=== PATIENT | female | born 1980 | race Caucasian/White ===

== ENCOUNTER 2018-05-27 14:08 | Outpatient (CLI) ==
[2016-07-08 15:22] VITALS: BMI 25.0
[2018-05-27 14:23] LABS: URINE PREGNANCY TEST NEGATIVE (NEGATIVE)
== END 2018-05-27 14:09 | disposition home or self-care (01) ==
LOC: FCC-LAB 14:08
PROVIDERS: ATTEND Nurse Practitioner Family
DX: R39.15 Urgency of urination (principal); R31.0 Gross hematuria; N94.6 Dysmenorrhea, unspecified
CPT/HCPCS: 81001; 81025; 87086; 87800